=== PATIENT | female | born 1995 ===

== ENCOUNTER 2023-08-31 10:20 | Emergency (ER) | payer OTHER, SELFPAY ==
[2023-08-31 10:25] VITALS: BP 110/72; PULSE 89; RESP 16; TEMP 36.7; O2SAT 98; BMI 27.6
--- NOTE | 2023-08-31 11:08 | ED.GENADULT ---
HPI - General Adult General Chief complaint: Abdominal Pain Stated complaint: Diarrhea, abdominal pain, light headed, nauseous Time Seen by Provider: 08/31/23 10:53 Source: patient Mode of arrival: ambulatory Limitations: no limitations History of Present Illness HPI narrative: 28-year-old female coming in today complaining of 4 days of diarrhea. She has an episode of diarrhea every 1-2 hours all day long. She vomited once yesterday but has not otherwise been vomiting. She denies fevers. She denies recent travel. She denies that she is aware of. She states that she has abdominal cramping that is diffuse and migrates throughout the entire abdomen. She denies any urinary symptoms such as frequency, urgency or dysuria. She denies any blood in her vomit or stool. She denies taking any medications. She denies any sick contacts. Patient feels weak and lightheaded. She states that she went to the urgent care yesterday and they gave her Zofran. It was recommended she go to the emergency room for IV fluids, unfortunately the wait was too long and she did not get IV fluids yesterday. Related Data Home Medications ?Medication ?Instructions ?Recorded ?Confirmed No Known Home Medications 08/31/23 08/31/23 Allergies Allergy/AdvReac Type Severity Reaction Status Date / Time No Known Drug Allergies Allergy Verified 08/31/23 10:31 Review of Systems Status of ROS: Reports: 10 or more systems reviewed and unremarkable except as noted in History and below [facility] Social History Smoking Status: Never smoker How often do you have a drink containing alcohol: never How often do you have six or more drinks on one occasion: Never AUDIT-C Alcohol total score: 0 Non-prescribed substance use: denies use Exam Narrative: Exam Narrative: Well-nourished well-developed patient in no acute distress. Alert and oriented. Answers questions appropriately. Mood and affect are appropriate. Thoughts are goal oriented and rational. No tangential or magical thinking noted. Patient speaks in full sentences without needing to catch her breath. HEENT: Normocephalic atraumatic. Pupils are equally round reactive to light. Extraocular muscles are intact. Conjunctivae are moist without any icterus noted. Moist mucous membranes. Posterior pharynx is normal. Neck is soft without any lymphadenopathy or thyromegaly. No masses are appreciated. Cardiovascular: Heart is regular rate and rhythm S1 and S2 are present without any murmurs. Lungs: Clear to auscultation bilaterally no wheezes rhonchi or rales are appreciated. Patient takes deep breaths without any discomfort. Abdomen: Soft and nondistended with normal bowel sounds. No guarding or rebound. No masses or organomegaly appreciated. Minimal discomfort throughout the abdomen. Extremities: Bilateral lower extremities are without edema. Normal DP and PT pulses. Skin: Well perfused without any obvious rashes. Const: Vital Signs, click to edit/add: Vital Signs - 24 hr 08/31/23 10:25 08/31/23 12:43 Temperature 98.0 F Pulse Rate [Pulse Oximeter] 89 78 Respiratory Rate 16 16 Blood Pressure [Ri ght Upper Arm] 110/72 106/58 L Pulse Oximetry 98 100 Oxygen Delivery Me thod Room Air Room Air Course Course ED Course: IV is established and patient receives IV Zofran and 1 L of normal saline. Normal lactate. CBC unremarkable. AST and ALT minimally elevated. test is negative. Chemistries are normal. Patient was here for 2-1/2 hours unfortunately, was not able to give a stool sample. Vital Signs Vital signs: Initial Vital Signs Temperature 98.0 F 08/31/23 10:25 Temperature Source Temporal Artery Scan 08/31/23 10:25 Pulse Rate 89 08/31/23 10:25 Respiratory Rate 16 08/31/23 10:25 Blood Pressure 110/72 08/31/23 10:25 Blood Pressure Mean 84 08/31/23 10:25 Blood Pressure Position Sitting 08/31/23 10:25 Pulse Oximetry 98 08/31/23 10:25 Oxygen Delivery Method Room Air 08/31/23 10:25 Vital Signs Temperature 98.0 F 08/31/23 10:25 Pulse Rate 89 08/31/23 10:25 Respiratory Rate 16 08/31/23 10:25 Blood Pressure 110/72 08/31/23 10:25 Pulse Oximetry 98 08/31/23 10:25 Oxygen Delivery Method Room Air 08/31/23 10:25 Temperature 98.0 F 08/31/23 10:25 Pulse Rate 78 08/31/23 12:43 Respiratory Rate 16 08/31/23 12:43 Blood Pressure 106/58 L 08/31/23 12:43 Pulse Oximetry 100 08/31/23 12:43 Oxygen Delivery Method Room Air 08/31/23 12:43 Medical Decision Making MDM Narrative Medical decision making narrative: 28-year-old female going on day 4 of diarrhea. We discussed Imodium, fluids and rest. Can return stool samples for stool studies. Lab Data Lab results reviewed: Yes I reviewed the patient's lab results Labs: Lab Results 08/31/23 Range/Units 11:15 WBC 4.64 (4.50-11.00) K/uL RBC 4.42 (4.00-5.20) m/uL Hgb 13.5 (12.0-16.0) gm/dL Hct 40.5 (33.0-51.0) % MCV 92 (80-100) fL MCH 31 (26-34) pg MCHC 33 (32-36) gm/dL RDW Coeff of James 12.7 (11.5-15.5) % Plt Count 156 (140-440) K/uL Neut % (Auto) 47.6 (42.0-72.0) % Lymph % (Auto) 36.9 (20-44) % [place] % (Auto) 13.4 H (0.0-11.0) % Eos % (Auto) 1.7 (0.0-7.0) % Baso % (Auto) 0.4 (0.0-3.0) % Neut # (Auto) 2.21 (1.7-7.0) K/uL Lymph # (Auto) 1.71 (0.90-2.90) K/uL [place] # (Auto) 0.60 (0.00-0.90) K/UL Eos # (Auto) 0.08 (0.00-0.50) K/uL Baso # (Auto) 0.02 (0.00-0.30) K/uL Abs Immat Gran (auto) 0.00 (0.00-0.30) K/uL Imm/Tot Granulo (auto) 0.0 % Sodium 137 (135-149) mmol/L Potassium 4.2 (3.6-5.1) mmol/L Chloride 106 (96-114) mmol/L Carbon Dioxide 22 (20-32) mmol/L Anion Gap 9 (7-15) mEq/L BUN 12 (5-24) mg/dL Creatinine 0.7 (0.5-1.5) mg/dL Estimated Creat Clear 99.86 Estimated GFR 121 ml/min Glucose 101 (60-115) mg/dL Lactate 1.0 (0.5-1.9) mmol/L Calcium 8.8 (8.4-10.6) mg/dL Total Bilirubin 0.4 (0.1-1.5) mg/dL Direct Bilirubin 0.3 (0.0-0.5) mg/dL AST 47 H (12-35) U/L ALT 41 H (4-35) U/L Alkaline Phosphatase 81 (40-150) U/L Total Protein 7.0 (6.0-8.3) g/dL Albumin 4.0 (3.3-5.0) g/dL Lipase 49 (23-300) U/L TSH 2.020 (0.270-4.20) uIU/mL HCG, Qual Negative (Negative) SARS-CoV-2 (PCR) Negative SARS-CoV-2 (Negative) Influenza Type A (PCR) Negative PCR FLU A (Negative) Influenza Type B (PCR) Negative PCR FLU B (Negative) Discharge Plan Discharge Clinical Impression: Diarrhea Patient Disposition: Home, Self-Care Condition: Stable Additional Instructions: Your workup today did not show any evidence of any serious infection or problem. Make sure to stay well hydrated throughout the day. Okay to use Imodium as directed on the box. You will be sent home with a stool collecting kit for stool samples. Bring back at your convenience. Prescriptions: No Action No Known Home Medications Follow Up/Referrals: Provider,Not a Local [Primary Care Provider] - Stand Alone Forms: [email or web address] Info Instructions
[2023-08-31 11:26] LABS: Basophils Absolute Auto 0.02 K/uL (0.00-0.30); Basophils Percent Auto 0.4 % (0.0-3.0); Eosinophils Absolute Auto 0.08 K/uL (0.00-0.50); Eosinophils Percent Auto 1.7 % (0.0-7.0); Hematocrit 40.5 % (33.0-51.0); Hemoglobin* 13.5 gm/dL (12.0-16.0); Lymphocytes Absolute Auto 1.71 K/uL (0.90-2.90); Lymphocytes Percent Auto 36.9 % (20-44); Mean Corpuscular HGB Conc 33 gm/dL (32-36); Mean Corpuscular Hemoglobin 31 pg (26-34); Mean Corpuscular Volume 92 fL (80-100); Monocytes Percent Auto 13.4 % (0.0-11.0); Neutrophils Absolute Auto 2.21 K/uL (1.7-7.0); Neutrophils Percent Auto 47.6 % (42.0-72.0); Platelet Count* 156 K/uL (140-440); RDW Coefficient of Variation % 12.7 % (11.5-15.5); Red Blood Count 4.42 m/uL (4.00-5.20); White Blood Count* 4.64 K/uL (4.50-11.00)
[2023-08-31 11:34] LABS: Slide Review Reflex No
[2023-08-31 11:44] LABS: Aspartate Amino Transferase* 47 U/L (12-35); Bilirubin Direct* 0.3 mg/dL (0.0-0.5); Bilirubin Total* 0.4 mg/dL (0.1-1.5)
[2023-08-31 11:45] LABS: Alanine Aminotransferase* 41 U/L (4-35); Alkaline Phosphatase* 81 U/L (40-150); Lipase* 49 U/L (23-300)
[2023-08-31 11:56] LABS: HCG Qualitative Serum* Negative (Negative)
--- OUTSIDE RECORDS SUMMARY | 2023-08-31 12:02 | XMS_ITS | Clinical Summary ---
Author Organization [facility] Address [place], [place] [address] Care Team Providers Care Lay Out Former Name Role Phone Pcp, No Primary Care Provider Unavailabl e Allergies No known active allergies Medications Medication Sig Dispensed Refills Start Date End Date Status ondansetron (ZOFRAN ODT) 4 mg disintegrating tabletIndications:Naus ea Place 2 Tablets (8 mg) on the tongue one time for 1 dose. 2 Tablet 08/30/2023 08/30/2023 Hospital, Clinic, or Other Facility Administered Medication Ordered Dose Route Frequency Start Date End Date Status ondansetron 8 mg injection (ZOFRAN)Indications:O ther problems related to social environment,Acute diarrhea,Abdominal pain, epigastric 8 mg IV ONE TIME 08/30/2023 08/30/2023 Disconti nued Active Problems Problem Noted Date Diagnosed Date Pap smear for cervical cancer screening 08/01/19 24 Overview: 06/2023 NIL/HPV Negative Plan: HPV-based testing due in 5 years Encounters Date Type Department Care Team Description 08/30/2023 2:09 PM CDT - 08/30/2023 4:27 PM CDT Emergency [facility] [address] [place] [address] Patient left without being seen (Primary Dx) 08/30/2023 12:40 PM CDT Office Visit [facility] [address] [place], [place] [id number] Yazmin Alva NP Diarrhea 08/30/2023 Travel 08/30/2023 [place] [facility] [address] [place] [address] Ximena Pollard NP Diarrhea 07/19/2023 3:15 PM CDT Ancillary Procedure [facility] [address] [place] [address] 07/18/2023 3:35 PM CDT [place] [facility] [address] [place] [address] Ximena Pollard NP Physical 07/18/2023 Travel from Last 3 Months Immunizations Name Administration Dates Next Due Dtap Unspecified Formulation 06/02/2001, 02/10/1998,03/10/1997,01/08,1996 Hepatitis A (Adult) 06/03/2000 Hepatitis A (Peds),Unspecified 03/01/2000 Hepatitis A, Unspecified 08/11/1999 Hepatitis B, Unspecified 03/10/1997,1996,0 1996 Hib Conjugate, Unspecified 02/10/1998,,01/08/1997,10/11 Human Papilloma Virus Vaccine 11/26/2009, 009,10/08/2008 Inactivated Polio Vaccine 06/02/2001,,01/08/1997,10/11 Influenza A (H1N1), Inactiva kory (Age >=3 Years) 01/21/2009 Influenza Nasal, Unspecified Formulation 01/21/2009 Influenza Virus, Unspecified 11/26/2009 Influenza,LAIV3 Live Intrana smiley (Flumist) 01/30/2012 MMR 06/02/2001,02/10/1998 Meningococcal Vaccine (Menactra) 07/30/2015,09/20 Tdap 09/13/2022,04/04/2010,10/08/2008 Varicella Vaccine 01/21/2009,02/10/1998 Social History Tobacco Use Types Packs/Day Years Used Date Smoking Tobacco: Never Passive Smoke Exposure: Never Smokeless Tobacco: Never Tobacco Cessation:Counseling Given: Yes Alcohol Use Standard Drinks/Week Comments Yes 0 (1 standard drink = 0.6 oz pur e alcohol) occ PHQ-2 Answer Date Recorded PHQ-2 TOTAL SCORE 0 07/18/2023 Social Connections Answer Date Recorded Frequency of Communication with Friends and Fami ly 4 08/30/2023 Financial Resource Strain Answer Date R ecorded Difficulty of Paying Living Expenses 3 08/30/2023 Difficulty of Paying Living Expenses Not on file 08/30/2023 Food Insecurity Answer Date Recorded Worried About Running Out of Food in the Last Ye ar 1 08/30/2023 Transportation Needs Answer Date Record ed Lack of Transportation (Medical) 1 08/30/2023 Housing Stability Answer Date Recorded Unable to Pay for Housing in the Last Year 1 08/30/2023 Sex and Gender Information Value Date Recorded Sex Assigned at Not on file Gender Identity Not on file Sexual Orientation Not on file Obstetrics History Last Filed Vital Signs Vital Sign Reading Time Taken Comments Blood Pressure 125/87 08/30/2023 2:13 PM CDT Pulse 96 08/30/2023 2:13 PM CDT Temperature 36.3 ??C (97.3 ??F) 08/30/2023 2:13 PM CD T Respiratory Rate 18 08/30/2023 2:13 PM CDT Oxygen Saturation 99% 08/30/2023 2:13 PM CDT Inhaled Oxygen Concentration - - Weight 71.7 kg (158 lb) 08/30/2023 2:13 PM CDT Height 160 cm (5' 3) 08/30/2023 2:13 PM CDT Body Mass Index 27.99 08/30/2023 2:13 PM CDT Plan of Treatment Health Maintenance Due Date Last Done Comments COVID-19 vaccine series ( season) 2022 Influenza for age 9-49 10/22/2023 2, 11/26/2009, 01/21/2009, Additional history exists BMI (ht and wt on same day) for age 18+ 07/17/2024 07/18/2023, 07/28/2022, 07/24/2022 Depression screening for age 12+ 07/17/2024 07/18/2023, 07/29/2022, 07/28/2022 Pap test for age 21-65 07/17/2028 07/18/2023, 2023 Tetanus booster 09/13/2032 09/13/2022, 03/23, 10/08/2008 Tdap Completed 09/13/2022, 03/23, 10/08/2008 HIV for age 15-65 Completed 07/18/2023 Hepatitis C screening for age 18-79 Completed 07/18/2023 Pneumococcal series for age 6-64 Aged Out No longer eligible based on patient's age to complete this topic Procedures Procedure Name Priority Date/Time Associated Diagnosis Comments US PELVIS COMPLETE TA AND TV Routine 07/19/2023 3:56 PM CDT Pelvic pain CLINICAL SCIENCES PROFESSOR THIN PREP PAP SCREEN IMAGED Routine 07/18/2023 4:43 PM CDT Cervical cancer screening HPV THIN PREP Routine 07/18/2023 4:43 PM CDT Cervical cancer screening GC CHLAMYDIA TRACH PROBE Routine 07/18/2023 4:43 PM CDT Pelvic pain CBC WITH AUTO DIFFERENTIAL Routine 07/18/2023 4:07 PM CDT Abdominal pain, epigastric LIPASE Routine 07/18/2023 4:07 PM CDT Abdominal pain, epigastric CBC WITH AUTO DIFFERENTIAL Routine 07/18/2023 4:07 PM CDT Abdominal pain, epigastric URINE Routine 07/18/2023 4:07 PM CDT Pelvic pain COMP METABOLIC PANEL Routine 07/18/2023 4:07 PM CDT Abdominal pain, epigastric LIPID PANEL W REFLEX MEASURED LDL Routine 07/18/2023 4:07 PM CDT Well adult exam ANTI HCV Routine 07/18/2023 4:07 PM CDT Well adult exam ANTI HIV 1/2 Routine 07/18/2023 4:07 PM CDT Well adult exam from Last 3 Months Results * US PELVIS COMPLETE TA AND TV (07/19/2023 3:56 PM CDT) Anatomical Region Laterality Modality Pelvis Ultrasound 07/20/2023 11:0 9 AM CDT Impressions 07/20/2023 11:09 AM CDT Normal pelvic ultrasound. No evidence of ovarian torsion, excess pelvic free fluid or adnexal mass. Dictated by Leno Botello MD @ 07/20/2023 11:09:00 AM (Electronically Signed) Narrative 07/20/2023 11:09 AM CDT For Patients: ??As a result of the Cures Act, medical imaging exams and procedure reports are released immediately into your electronic medical record. ??You may view this report before your referring provider. ??If you have questions, please contact your health care provider. INDICATION: Pelvic pain COMPARISON: none TECHNIQUE: 2D mejía scale and color Doppler images were acquired of the pelvis using a transabdominal and transvaginal approach. FINDINGS: Sonographic images demonstrate a normal size and smooth outer contour of the uterus. Uterus measures 6.8 cm in length by 3.1 cm in AP diameter by 4.3 cm in transverse dimension. ??The myometrium has a normal uniform echotexture. The endometrial lining appears normal and measures 6 mm in composite thickness. The right ovary measures 2.8 x 1.1 x 1.3 cm in size and the left ovary measures 3.6 x 1.8 x 1.7 cm. The ovaries demonstrate normal arterial and venous blood flow on color Doppler analysis. There are no suspicious fluid collections within the cul-de-sac. Dominant follicle left ovary measures 16 x 14 x 14 millimeters. Trace pelvic free fluid noted, physiologic. Procedure Note Leno Botello MD - 07/20/2023 For Patients: As a result of the Cures Act, medical imagingexams and procedure reports are released immediately into your electronicmedical record. You may view this report before your referring provider.If you have questions, please contact your health care provider. INDICATION: Pelvic pain COMPARISON: none TECHNIQUE: 2D mejía scale and color Doppler images were acquired of the pelvis using atransabdominal and transvaginal approach. FINDINGS: Sonographic images demonstrate a normal size and smooth outer contour ofthe uterus. Uterus measures 6.8 cm in length by 3.1 cm in AP diameter by4.3 cm in transverse dimension. The myometrium has a normal uniformechotexture. The endometrial lining appears normal and measures 6 mm incomposite thickness. The right ovary measures 2.8 x 1.1 x 1.3 cm in size and the left ovarymeasures 3.6 x 1.8 x 1.7 cm. The ovaries demonstrate normal arterial andvenous blood flow on color Doppler analysis. There are no suspicious fluidcollections within the cul-de-sac. Dominant follicle left ovary [id number] x 14 x 14 millimeters. Trace pelvic free fluid noted, physiologic. IMPRESSION: Normal pelvic ultrasound. No evidence of ovarian torsion, excess pelvicfree fluid or adnexal mass. Dictated by Leno Botello MD @ 07/20/2023 11:09:00 AM (Electronically Signed) Ximena Pollard NP * CLINICAL SCIENCES PROFESSOR THIN PREP PAP SCREEN IMAGED (07/18/2023 4:43 PM CDT) Case Report Gynecologic Cytology Report ? Case: [id number] ? Authorizing Provider: ??Ximena Pollard NP ?Collected: ? 07/18/2023 1643 ? Ordering Location: ? [facility] ?Received: ?07/18/2023 1643 ? [facility] ? First Screen: ?Colt, Xon Eben ? Specimen: ?CLINICAL SCIENCES PROFESSOR ThinPrep Vial Screening, Cervical ? 07/27/2023 7:16 PM CDT [facility] INTERPRETATION/ RESULT NEGATIVE FOR INTRAEPITHELIAL LESION OR MALIGNANCY (NIL) (none) 07/27/2023 7:16 PM CDT [facility] IMEN ADEQUACY Satisfactory for evaluation Endocervical component present 07/27/2023 7:16 PM CDT [facility] HPV REQUEST HPV and PAP 07/27/2023 7:16 PM CDT [facility] Date of LMP 07/11/2023 07/27/2023 7:16 PM CDT [facility] Last Pap Date unknown 07/27/2023 7:16 PM CDT [facility] Last Pap Result First Pap/Unknown 7:16 PM CDT [facility] Abnormal Pap or Axtell Bx in last 5 years No 07/27/2023 7:16 PM CDT [facility] Menstrual Status Regular Periods 07/27/2023 7:16 PM CDT [facility] Axtell Bx Done Today No 07/27/2023 7:16 PM CDT [facility] Additional Information None given 07/27/2023 7:16 PM CDT [facility] Comment: Cytology is screened at [facility] - [address], [place] [address] and [facility] - [address] [place] [address] and [facility] - [address] [place] [address] Interpreted at [facility] - [address], [place] [address] Automated Review Successful 07/27/2023 7:16 PM CDT [facility] Comment:Specimen processed s uccessfully by automated divorce mediator device, ThinPrep Imaging System, [employer] ANCILLARY TESTING CLINICAL SCIENCES PROFESSOR HPV Ordered, Please see separate report 07/27/2023 7:16 PM CDT [facility] Note The pap test is a screening technique, not a diagnostic procedure. It is used primarily to screen for squamous cancers and precursor lesions. Published studies have shown that it is subject to both false negative and false positive results. The pap test should not be used as the sole means to diagnose or exclude pre-malignant and malignant lesions. 07/27/2023 7:16 PM CDT [facility] Other (Cervical) Non-Blood / Unknown 07/18/2023 4:43 PM CDT 07/18/2023 4:43 PM CDT Ximena Pollard NP PATHOLOGY/CYTOLOGY Performing Organization Address City/[facility]/ZIP Co de Phone Number [facility] [address] [place] [address], [place] * GC & CHLAMYDIA DNA PCR [[id number]] (07/18/2023 4:43 PM CDT) CHLAMYDIA PROBE Negative 3:06 AM CDT [facility] N GONORRHOEAE PROBE Negative 07/19/2023 3:06 AM CDT [facility] Other VAGINAL SWAB / Unknown Non-Blood / Unknown 07/18/2023 4:43 PM CDT 07/18/2023 4:43 PM CDT Ximena Pollard NP MICROBIOLOGY [facility] [address] [place] [address], [place] * HPV HIGH RISK (07/18/2023 4:43 PM CDT) TYPE 16 Negative Negative 07/21/2023 11:10 AM CDT [facility] TYPE 18 Negative Negative 07/21/2023 11:10 AM CDT [facility] OTHER HIGH RISK TYPES Negative Negative 07/21/2023 11:10 AM CDT [facility] Other (Cervical) Non-Blood / Unknown 07/18/2023 4:43 PM CDT 07/19/2023 9:[address] [facility] - 07/21/2023 11:10 AM CDT HPV types 16, 18, 31, 33, 35, 39, 45, 51, 52, 56, 58, 59, 66 and 68 DNA were undetectable or below the pre-set threshold. Methodology: [employer] Lonnie 4800 HPV Test Ximena Pollard NP MICROBIOLOGY [facility] [address] [place] [address], * (ABNORMAL) CBC WITH AUTO DIFFERENTIAL (07/18/2023 4:07 PM CDT) WHITE BLOOD COUNT 8.4 4.5 - 11.0 thou/cu mm 07/18/2023 4:22 PM CDT [facility] RED BLOOD COUNT 4.57 4.00 - 5.20 mil/cu mm 07/18/2023 4:22 PM CDT [facility] HEMOGLOBIN 13.9 12.0 - 16.0 g/dL 07/18/2023 4:22 PM CDT [facility] HEMATOCRIT 41.0 33.0 - 51.0 % 07/18/2023 4:22 PM CDT [facility] MCV 90 80 - 100 fL 07/18/2023 4:22 PM CDT [facility] MCH 30.4 26.0 - 34.0 pg 07/18/2023 4:22 PM CDT [facility] MCHC 33.9 32.0 - 36.0 g/dL 07/18/2023 4:22 PM CDT [facility] RDW 13.0 11.5 - 15.5 % 07/18/2023 4:22 PM CDT [facility] PLATELET COUNT 225 140 - 440 thou/cu mm 07/18/2023 4:22 PM CDT [facility] MPV 12.5(H) 6.5 - 11.0 fL 07/18/2023 4:22 PM CDT [facility] % NEUT 64.0 % 07/18/2023 4:22 PM CDT [facility] % LYMPH 33.0 % 07/18/2023 4:22 PM CDT [facility] % MXD (MONOS,EOS,BASOS ) 3.0 % 07/18/2023 4:22 PM CDT [facility] % MONO 07/18/2023 4:22 PM CDT [facility] % EOS 07/18/2023 4:22 PM CDT [facility] % BASO 07/18/2023 4:22 PM CDT [facility] ABSOLUTE NEUTROPHILS 5.3 1.7 - 7.0 thou/cu mm 07/18/2023 4:22 PM CDT [facility] ABSOLUTE LYMPHOCYTES 2.8 0.9 - 2.9 thou/cu mm 07/18/2023 4:22 PM CDT [facility] MIXED ABS 3 PART 0.3 0.2 - 1.2 thou/cu mm 07/18/2023 4:22 PM CDT [facility] ABSOLUTE MONOCYTES 07/18/2023 4:22 PM CDT [facility] ABSOLUTE EOSINOPHILS 07/18/2023 4:22 PM CDT [facility] ABSOLUTE BASOPHILS 07/18/2023 4:22 PM CDT [facility] Blood BLOOD SPECIMEN / Unknown Venipuncture / Unknown 07/18/2023 4:07 PM CDT 07/18/2023 4:07 PM CDT Ximena N Thiner HUMAN FACTORS SPECIALIST HEMATOLOGY [facility] [address] [place] [address], [place] * (ABNORMAL) LIPID PANEL W REFLEX MEASURED LDL (07/18/2023 4:07 PM CDT) CHOLESTEROL,TOTAL 170 100 - 199 mg/dL 07/19/2023 4:32 AM CDT [facility] Comment: Cholesterol, Total Reference Ranges Desirable <200 mg/dL Borderline 200-239 mg/dL High >=240 mg/dL TRIGLYCERIDES 171(H) <150 mg/dL 07/19/2023 4:32 AM CDT [facility] HDL CHOLESTEROL 47 >40 mg/dL 4:32 AM CDT [facility] NON-HDL CHOLESTEROL 123 <145 mg/dl 07/19/2023 4:32 AM CDT [facility] CHOL/HDL RATIO 3.62 <4.50 07/19/2023 4:32 AM CDT [facility] LDL CHOLESTEROL 89 <=130 mg/dL 07/19/2023 4:32 AM CDT [facility] VLDL CHOLESTEROL 34(H) <=30 mg/dL 07/19/2023 4:32 AM CDT [facility] PROVIDER ORDERED STATUS RANDOM 07/19/2023 4:32 AM CDT [facility] Blood BLOOD SPECIMEN / Unknown Venipuncture / Unknown 07/18/2023 4:07 PM CDT 07/18/2023 4:07 PM CDT Ximena Pollard NP CHEMISTRY [facility] [address] [place] [address], [place] * ANTI HCV (07/18/2023 4:07 PM CDT) HEPATITIS C ANTIBODY Non-Reacti ve Non-React zully 07/19/2023 4:20 AM CDT [facility] Comment:Please note, per www .CDC.gov: If a patient is known to be at high risk of HCV infection, or is symptomatic, and the physician's suspicion of HCV infection is high, HCV RNA testing is often employed and is of diagnostic value, even after an initial negative anti-HCV test result. Blood BLOOD SPECIMEN / Unknown Venipuncture / Unknown 07/18/2023 4:07 PM CDT 07/18/2023 4:07 PM CDT Ximena Pollard HUMAN FACTORS SPECIALIST SEND OUTS [facility] [address] [place] [address], [place] * ANTI HIV 1/2 (07/18/2023 4:07 PM CDT) Pathologist [facility] HIV-1/HIV-2 SCREEN Non-Reacti ve Non-Reacti ve 07/19/2023 4:18 AM CDT [facility] Comment:HIV-1 p24 and HIV-1/ HIV-2 Ab Not Detected. Blood BLOOD SPECIMEN / Unknown Venipuncture / Unknown 07/18/2023 4:07 PM CDT 07/18/2023 4:07 PM CDT Ximena Pollard NP SEND OUTS Performing Organization Address [facility] Co de Phone Number [facility] [address] [place] [id number], [place] * LIPASE (07/18/2023 4:07 PM CDT) LIPASE 18.6 13.0 - 60.0 IU/L 07/19/2023 4:32 AM CDT [facility] Blood BLOOD SPECIMEN / Unknown Venipuncture / Unknown 07/18/2023 4:07 PM CDT 07/18/2023 4:07 PM CDT Ximena Pollard NP CHEMISTRY Performing Organization Address City/[facility]/ZIP Co de Phone Number [facility] [address] [place] [address], [place] * URINE (07/18/2023 4:07 PM CDT) ,URIN E Negative Negative 07/18/2023 4:19 PM CDT [facility] Urine URINE SPECIMEN / Unknown Non-Blood / Unknown 07/18/2023 4:07 PM CDT 07/18/2023 4:07 PM CDT Ximena Pollard NP URINE [facility] [address] [place] [address], [place] * COMP METABOLIC PANEL (07/18/2023 4:07 PM CDT) Pathologist [facility] SODIUM 138 136 - 145 mmol/L 07/19/2023 4:32 AM CDT [facility] POTASSIUM 4.2 3.5 - 5.1 mmol/L 07/19/2023 4:32 AM T [facility] CHLORIDE 102 98 - 107 mmol/L 07/19/2023 4:32 AM CDT [facility] CO2,TOTAL 26 22 - 29 mmol/L 07/19/2023 4:32 AM T [facility] ANION GAP 10 5 - 18 07/19/2023 4:32 AM T [facility] GLUCOSE 86 70 - 99 mg/dL 07/19/2023 4:32 AM T [facility] CALCIUM 9.8 8.6 - 10.0 mg/dL 07/19/2023 4:32 AM CDT [facility] BUN 11 6 - 20 mg/dL 07/19/2023 4:32 AM T [facility] CREATININE 0.80 0.50 - 0.90 mg/dL 07/19/2023 4:32 AM T [facility] BUN/CREAT RATIO 14 10 - 20 4:32 AM T [facility] eGFR >90 >90 mL/min/1.7 3m2 07/19/2023 4:32 AM CDT [facility] Comment:As of 2021, eG FR is calculated by the CKD-EPI creatinine equation without race adjustment. ??eGFR can be influenced by muscle mass, exercise, and diet. ??The reported eGFR is an estimation only and is only applicable if the renal function is stable. ALBUMIN 4.7 4.0 - 4.9 g/dL 07/19/2023 4:32 AM CDT [facility] PROTEIN,TOTAL 7.8 6.0 - 8.0 g/dL 07/19/2023 4:32 AM CDT [facility] BILIRUBIN,TOTAL 0.6 0.0 - 1.2 mg/dL 07/19/2023 4:32 AM CDT [facility] ALK PHOSPHATASE 82 35 - 104 IU/L 07/19/2023 4:32 AM CDT [facility] ALT (SGPT) 24 10 - 35 IU/L 07/19/2023 4:32 AM CDT [facility] AST (SGOT) 24 10 - 35 IU/L 07/19/2023 4:32 AM CDT [facility] Blood BLOOD SPECIMEN / Unknown Venipuncture / Unknown 07/18/2023 4:07 PM CDT 07/18/2023 4:07 PM CDT Ximena Pollard NP CHEMISTRY [facility] [address] [place] [address], from Last 3 Months Care Teams Lay Out Former Relationship Specialty Start Date End Date Pcp, No . PCP - General 07/24/22
[2023-08-31 12:04] LABS: PCR FLU A Negative PCR FLU A (Negative); PCR FLU B Negative PCR FLU B (Negative); SARS PCR* Negative SARS-CoV-2 (Negative)
[2023-08-31 12:10] LABS: Chloride* 106 mmol/L (96-114)
[2023-08-31 12:11] LABS: Potassium* 4.2 mmol/L (3.6-5.1); Sodium* 137 mmol/L (135-149)
[2023-08-31 12:13] LABS: Anion Gap 9 mEq/L (7-15); Carbon Dioxide* 22 mmol/L (20-32); Creatinine* 0.7 mg/dL (0.5-1.5); Est. Creatinine Clearance* 99.86; Estimated Glomerular Filt Rate 121 ml/min
[2023-08-31 12:14] LABS: Blood Urea Nitrogen* 12 mg/dL (5-24); Calcium* 8.8 mg/dL (8.4-10.6); Glucose* 101 mg/dL (60-115)
[2023-08-31 12:43] VITALS: BP 106/58; PULSE 78; RESP 16; O2SAT 100
== END 2023-08-31 13:14 | disposition home or self-care (01) ==
PROVIDERS: Emergency Provider Family Medicine
DX: R19.7 Diarrhea, unspecified (principal)
CPT/HCPCS: 36415; 80048; 80076; 81025; 83605; 83690; 84443; 84703; 85025; 87045; 87046; 87427; 87493; 87631; 99283; 99284